=== PATIENT | male | born 1980 | race Caucasian/White ===

== ENCOUNTER → 2017-09-13 | Outpatient (CLI) | payer OTHER ==
--- NOTE | 2017-09-13 10:10 | DIAGNOSTIC IMAGING REPORT ---
CHEST 2 VIEWS ROUTINE CLINICAL HISTORY: COUGH dyspnea COMPARISON STUDY: No previous studies for comparison. FINDINGS: Consolidative infiltrate medial aspect left lower lobe. Lungs otherwise appear clear. No evidence for cardiac enlargement. IMPRESSION: Focal consolidative infiltrate medial aspect left lower lobe The above report was generated using voice recognition software. It may contain grammatical, syntax or spelling errors. Electronically signed by: Aditya Huber M.D. 09/13/2017 10:08 AM Dictated Date/Time: 09/13/2017 10:08 AM
== END | disposition home or self-care (01) ==
LOC: C.RAD1850 10:00
PROVIDERS: ATTEND Hospitalist
DX: J06.9 Acute upper respiratory infection, unspecified (principal); R05 Cough